=== PATIENT | female | born 1985 | race Caucasian/White ===

== ENCOUNTER 2018-12-29 01:50 | Emergency (ER) | payer BC ==
[~2018-12-29] VITALS: Ht 165.1 cm; Wt 86.3 kg
[~2018-12-29 01:50] MED LIST: LOPRESSOR50 MG OR; PRENA1/QUATREFOLIC; TOPROL XL50 MG PO; XANAX0.25 MG PO
[2018-12-29] MEDS ORDERED: LEVOTHYROXIN25 MC1 PO (02:29)
[2018-12-29 02:55] LABS: HEMATOCRIT 38.7 % (37.0-47.0); HEMOGLOBIN 13.3 g/dl (12.0-16.0); IMMATURE GRANULOCYTES 0.5 % (0.0-5.0); MEAN CORPUSCULAR HGB 30.9 pG CALC (26.0-32.0); MEAN CORPUSCULAR HGB CONC 34.4 g/L CALC (32.0-36.0); NEUT# 7.28 thou/uL (2.00-7.15); RED BLOOD COUNT 4.3 mill/uL (4.20-5.60); RED CELL DISTRI WIDTH 12.3 % (11.5-15.5)
[2018-12-29 02:56] LABS: URINE BILIRUBIN - DIPSTICK NEGATIVE (NEGATIVE); URINE BLOOD DIPSTICK NEGATIVE (NEGATIVE); URINE COLOR YELLOW; URINE GLUCOSE - DIPSTICK NEGATIVE (NEGATIVE); URINE KETONE NEGATIVE (NEGATIVE); URINE LEUK ESTERASE NEGATIVE (NEGATIVE); URINE NITRITE - DIPSTICK NEGATIVE (Negative); URINE PROTEIN - DIPSTICK NEGATIVE (NEG-TRACE); URINE UROBILINOGEN - DIPSTICK 0.2 E.U./dL (0.2)
[2018-12-29 03:02] LABS: BARBITURATES NEGATIVE (NEGATIVE); COCAINE NEGATIVE (NEGATIVE); METHADONE NEGATIVE (NEGATIVE); OXCYCODONE NEGATIVE (NEGATIVE); TETRAHYDROCANNABIONOL NEGATIVE (NEGATIVE); TRICYLIC ANTIDEPRESSANTS NEGATIVE (NEGATIVE)
[2018-12-29 03:13] LABS: ALBUMIN 4.5 g/dL (3.2-5.0); ALKALINE PHOSPHATASE 96 u/l (38-126); ANION GAP 15 (6-22 (CALC)); BILIRUBIN, TOTAL 0.4 mg/dL (0.0-1.4); BUN 9 mg/dL (7-17); BUN/CREATININE RATIO 12 (12-20 (CALC)); CARBON DIOXIDE 26 mmol/l (22-30); CHLORIDE 101 mmol/l (95-108); CREATININE 0.8 mg/dL (0.5-1.0); GFR > 60 ML/MIN (>=60 (CALC)); GFR FOR AFR.AMER. > 60 ML/MIN (>=60 (CALC)); SGOT/AST 30 u/l (14-36); SODIUM 139 mmol/l (137-146); TOTAL PROTEIN 7.4 g/dL (6.3-8.2)
[2018-12-29 03:26] LABS: MYOGLOBIN 19 ng/mL (0 - 62)
[2018-12-29] MEDS ORDERED: AMOXICILLIN500 MG PO (04:08)
[2018-12-29] MEDS ORDERED: ZOVIRAX52 TOP (04:08)
[2018-12-29] MEDS ORDERED: NAPROSYN500 MG PO (04:08)
[2018-12-29 04:34] VITALS: BP 152/70
== END 2018-12-29 04:43 | disposition home or self-care (01) | DRG 552 ==
LOC: ED 01:50
PROVIDERS: Emergency Medicine
DX: S13.4XXA Sprain of ligaments of cervical spine, initial encounter (principal); J02.0 Streptococcal pharyngitis; V94.9XXA Unspecified water transport accident, initial encounter; Y93.89 Activity, other specified; Y92.814 Boat as the place of occurrence of the external cause; R50.9 Fever, unspecified; M54.2 Cervicalgia; M62.838 Other muscle spasm

== ENCOUNTER 2023-06-24 19:34 | Emergency (ER) | payer OTHER ==
[2023-06-24] VITALS (7 sets, daily range): BP systolic 121–177; BP diastolic 73–96
[~2023-06-24] VITALS: Ht 165.1 cm; Wt 81.0 kg
[~2023-06-24 19:34] MED LIST changes: +AMOXICILLIN500 MG PO; +LEVOTHYROXIN25 MC1 PO; +NAPROSYN500 MG PO; +ZOVIRAX52 TOP
[2023-06-24 22:45] LABS: URINE BILIRUBIN - DIPSTICK Negative (NEGATIVE); URINE BLOOD DIPSTICK Negative (NEGATIVE); URINE GLUCOSE - DIPSTICK 500 mg/dL (NEGATIVE); URINE KETONE Negative (NEGATIVE); URINE LEUK ESTERASE Negative (NEGATIVE); URINE NITRITE - DIPSTICK Negative (Negative); URINE PH 5.5 (4.5-8.0); URINE PROTEIN - DIPSTICK Negative (NEG-TRACE); URINE UROBILINOGEN - DIPSTICK 0.2 E.U./dL (0.2)
[2023-06-24 22:47] LABS: URINE COLOR Yellow
== END 2023-06-24 23:48 | disposition home or self-care (01) | DRG 103 ==
LOC: ED 19:34
PROVIDERS: Emergency Medicine
DX: G43.909 Migraine, unspecified, not intractable, without status migrainosus (principal); I10 Essential (primary) hypertension; F41.9 Anxiety disorder, unspecified; E03.9 Hypothyroidism, unspecified
CPT/HCPCS: J2060